=== PATIENT | female | born 1945 | race Caucasian/White ===

== ENCOUNTER 2018-07-10 19:20 | Emergency (ER) | payer MEDICARE, OTHER ==
[~2018-07-10] VITALS: Ht 160 cm; Wt 55.3 kg
[~2018-07-10 19:20] MED LIST: MULTI VITAMIN1 EACH PO; VERAPAMIL ER120 M1 PO; VITAMIN D1000 UNIT PO; ZOFRAN4 MG/5 ML PO
[2018-07-10] MEDS ORDERED: LORAZEPAM INT2 MG/ML PO (19:35)
[2018-07-10] MEDS ORDERED: PROMETHAZINE HC25 M1 PO (19:35)
[2018-07-10] MEDS ORDERED: NORCO 5-325 TA1 EACH PO (19:36)
[2018-07-10] MEDS ORDERED: MORPHINE 5 MG/10 ML PT (19:37)
== END 2018-07-10 21:07 | disposition home or self-care (01) ==
LOC: ED 19:20
PROC: 0D20XUZ Change Feeding Device in Upper Intestinal Tract, External Approach (ICD-10-PCS; principal; 2018-07-10)
DX: Z43.1 Encounter for attention to gastrostomy (principal); C15.9 Malignant neoplasm of esophagus, unspecified; C34.90 Malignant neoplasm of unspecified part of unspecified bronchus or lung; K59.00 Constipation, unspecified; Z87.891 Personal history of nicotine dependence; Z88.0 Allergy status to penicillin; Z88.2 Allergy status to sulfonamides; Z79.899 Other long term (current) drug therapy
CPT/HCPCS: 43752; 99283-25